=== PATIENT | female | born 1940 | race Caucasian/White ===

== ENCOUNTER 2018-12-30 05:45 | Observation (INO) ==
[2018-12-30] MEDS ORDERED: ceFAZolin Inj 2gm (Premix) 2 GM/50 ML BAG IV ONE ×2 (06:00→06:02)
[2018-12-30] MEDS ORDERED: Vancomycin-PHA to Dose IV PRN (06:00)
[2018-12-30] MEDS ORDERED: LIDOCAINE W/ SODIUM BICARB 0.5 ML SYR SUBD ONE (06:00)
[2018-12-30] MEDS ORDERED: Nasal Sanitizer POPSWAB ampule 3 AMP (Nozin) PREOP DOSE ENOS SCH (06:00)
[2018-12-30] MEDS ORDERED: Lactated Ringers 1,000 ML PRIMARY IV ONE ×2 (06:00→06:02)
[2018-12-30] MEDS ORDERED: LIDOCAINE W/ SODIUM BICARB 0.5 ML SYR ONE (06:03)
[2018-12-30] MEDS ORDERED: VANCOMYCIN HCL 1.25 GM VIAL IV ONE (06:05)
[2018-12-30] MEDS ORDERED: Sodium Chloride 0.9% 250 ML ONE (06:05)
[2018-12-30] MEDS ORDERED: MIDAZOLAM HCL 2 MG/2 ML VIAL ONE (07:27)
[2018-12-30] MEDS ORDERED: fentaNYL Inj 250 MCG/5 ML VIAL ONE (07:27)
[2018-12-30] MEDS ORDERED: LIDOCAINE MPF 2% - 5 ML (20 MG/1 ML) ONE (07:28)
[2018-12-30] MEDS ORDERED: PROPOFOL 10 MG/1 ML (200 MG/20 ML) VIAL IV ONE (07:28)
[2018-12-30] MEDS ORDERED: ROCURONIUM 10 MG/1 ML - 5 ML VIAL IVP ONE (07:33)
[2018-12-30] MEDS ORDERED: BUPivacaine Inj 0.25% PF - 10ml vial ONE (07:34)
[2018-12-30] MEDS ORDERED: Sodium Chloride 0.9% vial 10 ML ONE (07:34)
[2018-12-30] MEDS ORDERED: BUPIVACAINE 0.25% W/ EPI - 10 ML VIAL ONE (07:35)
[2018-12-30] MEDS ORDERED: BACITRACIN 50,000 UNIT VIAL IRRIG ONE (07:35)
[2018-12-30] MEDS ORDERED: ePHEDrine Inj 50 MG/ML AMP ONE (07:59)
[2018-12-30] MEDS ORDERED: DEXAMETHASONE PF 10 MG/1 ML VIAL ONE (08:05)
[2018-12-30] MEDS ORDERED: KETAMINE 100 MG/1 ML - 5 ML ONE (09:01)
[2018-12-30] MEDS ORDERED: SUGAMMADEX SODIUM 200 MG/2 ML VIAL IV ONE (10:35)
[2018-12-30] MEDS ORDERED: HYDROmorphone 2 MG/1 ML ONE (10:50)
[2018-12-30] MEDS: HYDROmorphone 2 MG/1 ML IVP PRN ×3 (10:55→11:22)
[2018-12-30] MEDS ORDERED: LIDOCAINE W/ SODIUM BICARB 0.5 ML SYR SUBD PRN (10:57)
[2018-12-30] MEDS ORDERED: ONDANSETRON 4 MG/2 ML VIAL IVP PRN ×2 (10:57→11:39)
[2018-12-30] MEDS ORDERED: fentaNYL Inj 100 MCG/2 ML VIAL IVP PRN (10:57)
--- NOTE | 2018-12-30 10:57 | CRNA.PROGR ---
Anesthesia Recovery Phase I - Post Anesthesia Evaluation Patient's Condition on Arrival in Phase I: Stable Pain Level: 0
--- NOTE | 2018-12-30 10:57 | CRNA.PROGR ---
Anesthesia Time - Procedure/Recovery Time Start Date: 12/30/18 End Date: 12/30/18 Anesthesia : Time In: 07:47 Anesthesia : Time Out: 10:42 Anesthesia : Total Time: 175 - Total Anesthesia Time Total Anesthesia Time (minutes): 175 - Other Weight: 93.077 kg Height: 5 ft Body Mass Index (BMI): 40.1 Physical Status: P3 Anesthesia Type: General Anesthesia : ET (Prone)
[2018-12-30] MEDS ORDERED: Lactated Ringers 1,000 ML PRIMARY IV SCH (11:00)
--- NOTE | 2018-12-30 11:11 | GEN.OPNOTE ---
Operative Note Surgery Date: 12/30/18 Preoperative Diagnosis: 1. 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 2. Chronic low back pain. 3. Status post multiple thoracolumbar surgical procedures. 4. Status post multiple joint replacements. 5. Status post left femur fracture repair. Postoperative Diagnosis: 1. 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 2. Chronic low back pain. 3. Status post multiple thoracolumbar surgical procedures. 4. Status post multiple joint replacements. 5. Status post left femur fracture repair. Procedure: 1.) Arthrodesis, right sacroiliac joint, minimally invasively with image guidance with placement of three SI Bone triangular titanium transfixing devices across the right SI joint. (CPT code: 20818). 2.) Use of TMAT DBM Putty to fill the titanium triagular implants. (CPT code: 63900). 3.) Use of intra-operative fluoroscopy for planning trajectories of the tranfixing cages and for confirmation of the final position of the cages. 4.) Use of neuromonitoring including EMG's and SSEP's. Surgeon: Jose Engel MD Mail Handler Sorter: BRAN Cunningham Anesthesia Provider: Daniel Alvarado CRNA Anesthesia Type: General Estimated Blood Loss (mL): 10 Fluids: See anesthesia record Pathology: None Indications: Ms. Kelly is very pleasant 77 year old woman with chronic back and right hip pain. She is status post multiple lumbar surgeries including fusions, hardware removals, and most recently a L3-4 laminectomy done in 2011. She recently underwent a right sacroiliac joint injection on 10/16/18, she states she had multiple days of pain relief following this injection. She experianced the same with several previous right SI joint injections. Ms. Kelly recently had a consultation with Dr. Mosley for her right sided pain. Dr. Mosley believes her pain is related to her SI joint and not her hip. She continues to rate her pain at 4/10 when walking or standing, but has little pain when sitting. She states she is able to stand for more than 5 minutes before needing to sit down. She states her right leg continues to be weak and has been walking with a cane for support. She wished to proceed with a right SI joint fusion. She has been cleared by cardiology and her primary. She has been bridged on Lovenox, since stopping her Pradaxa. She presents today for her surgical procedure. Findings: Dysmorphic sacrum Complications: None Operative Summary: Ms. Kelly was met in the preoperative area. Her surgical history and physical in her surgical chart was reviewed. The planned procedure to be performed was confirmed with Ms. Klely and we were in agreement on the procedure to be performed and this matched what was written on her consent form. Any questions that Ms. Kelly or her son had were answered before she was taken back to the operating room suite. Ms. Kelly was brought back to the operating room suite and put under general anesthesia and intubated by the anesthesia staff. She had a Ackerman catheter placed in her bladder for the procedure. She had pneumatic compression hose placed on her lower legs bilaterally. Ms. Kelly was carefully rolled over onto the Wood surgical table with her arms gently positioned upwards with her shoulders abducted less than 90. Her arms were well-padded with foam padding on top of the padding of the surgical armboards. The region of her chest and axilla was checked bilaterally to make sure that there were no pressure points over the region of the brachial plexus bilaterally. Her breasts were checked be below the chest pad of the Wood table no pressure points over the nipples. All bony prominences were well padded. Her Ackerman catheter was checked be free from kinks. Her pneumatic compression hose was attached and pneumatic compression device. The C-arm fluoroscopy unit was used to help localize the sacral alar line over the skin over the lateral aspect of the buttocks as well as a mid sacral line over the same. Based on the intersection of these lines, an intended skin incision was marked along the mid sacral line starting 1 cm dorsal/caudal to the intersection of this line with the sacral alar line and extending 3 mm dorsally and caudally from that point with a skin marker. Several crosshatches were made along the intended skin incision with a skin marker as well. Ms. Kelly was prepped and draped in the usual and standard fashion. She was given 2 g of Ancef IV and vancomycin IV as dosed per pharmacy. She was prepped and draped in the usual and standard fashion. A standard surgical timeout was performed identifying the correct patient, the correct procedure, and the correct equipment being available for the procedure. The intended skin incision was injected subcutaneously with quarter percent Marcaine with 1 in 200,000 epinephrine. 10 mL of local anesthetic was used. The skin was incised with a 10 blade scalpel and all dermal and superficial bleeding points controlled bipolar cautery. The first sharp pin was then advanced to the lateral aspect of the ilium and adjusted under multiple spot fluoroscopy until the pin was on the ilium just caudal to the sacral alar line and just posterior to the anterior aspect of the sacrum. The pin was then carefully advanced into the ilium with a mallet. A pelvic inlet view was then obtained demonstrating the correct the correct trajectory of the pin in this plane. Imaging was then changed to a pelvic outlet view. The soft tissue dissector was placed over the first pin and the soft tissue was dissected around the pin using this dissector. The soft tissue protector with the insert was then placed over the pin down to the lateral aspect of the ilium. The extension of the pin beyond the center insert was measured to appropriately size the first SI Bone 3-D triangular titanium cage. The hand-held drill was then used to drill just across the sacroiliac joint over the pin which was performed under multiple spot fluoroscopy. The broach was then placed over the pin and the broach was advanced until the tines of the broach just passed through the SI joint. The first triangular titanium SI bone cage measuring 45 mm in length was filled with [place] DBM Putty and advanced across the sacroiliac joint over the pin with the guide and mallet. The cage obtained good purchase across the sacroiliac joint. Final pelvic outlet and pelvic inlet views were obtained of the final position of the first cage. The pin guide was then placed over the first pin and the second pin was advanced through the pin guide and also adjusted under multiple spot fluoroscopy until this pin was placed on the lateral aspect of the ilium caudal and posterior to the first cage. This pin was gently advanced into the lateral aspect of the ilium with a mallet. A pelvic inlet view was then obtained demonstrating the correct trajectories of the second pin in this plane. Imaging was then changed to a pelvic outlet view. The soft tissue dissector was placed over the second pin and the soft tissue was dissected around the pin using this dissector. The soft tissue protector with the insert was then placed over the pin down to the lateral aspect of the ilium. The extension of the pin beyond the center insert was measured to appropriately size the second SI Bone 3-D triangular titanium cage. The hand-held drill was then used to drill just across the sacroiliac joint over the pin which was performed under multiple spot fluoroscopy. The broach was then placed over the pin and the broach was advanced until the tines of the broach just passed through the SI joint. The second triangular titanium SI bone cage measuring 50 mm in length was filled with [place] DBM Putty and advanced across the sacroiliac joint over the pin with the guide and mallet. The cage obtained good purchase across the sacroiliac joint. Final pelvic outlet and pelvic inlet views were obtained of the final position of the second cage. The pin guide was then placed over the second pin and the third pin was advanced through the pin guide and also adjusted under multiple spot fluoroscopy until this pin was placed on the lateral aspect of the ilium caudal to the first two cages placed. This pin was gently advanced into the lateral aspect of the ilium with a mallet. A pelvic inlet view was then obtained demonstrating the correct trajectories of the third pin in this plane. Imaging was then changed to a pelvic outlet view. The soft tissue dissector was placed over the third pin and the soft tissue was dissected around the pin using this dissector. The soft tissue protector with the insert was then placed over the pin down to the lateral aspect of the ilium. The extension of the pin beyond the center insert was measured to appropriately size the third SI Bone 3-D triangular titanium cage. The hand-held drill was then used to drill just across the sacroiliac joint over the pin which was performed under multiple spot fluoroscopy. The broach was then placed over the pin and the broach was advanced until the tines of the broach just passed through the SI joint. The third triangular titanium SI bone cage measuring 40 mm in length was filled with [place] DBM Putty and advanced across the sacroiliac joint over the pin with the guide and mallet. The cage obtained good purchase across the sacroiliac joint. Final pelvic outlet and pelvic inlet views, as well as final AP and lateral images were obtained of the final position of all three cages placed. The surgical site was copiously irrigated with bacitracin irrigation. The closure portion of the procedure was begun. The deep subcutaneous tissue was re-approximated with 2-0 Vicryl suture in an interrupted fashion. The dermis and superficial subcutaneous tissue was re-approximated with 3-0 Vicryl suture in an inverted interrupted fashion. The [place] drape was pulled back from the skin edges and the final layer of skin closure was performed with 4-0 Monocryl suture in a running subcuticular fashion. All surgical drapes removed from Ms. Robin Urias was then carefully rolled over onto the PACU stretcher. She was awoken and extubated by the anesthesia staff. She was taken to the recovery room in stable condition. All surgical counts were reported as correct by the scrub and circulating personnel. A physician's produce assistant, Mrs. Susanne Sen PA-C, assisted with the procedure including the exposure and closure portions of the procedure. She also assisted guiding the instruments over the pins for their appropriate placement.
[2018-12-30] MEDS ORDERED: HYDROcodone-APAP 7.5 MG-325 MG TABLET PO PRN (11:39)
[2018-12-30] MEDS ORDERED: DIAZEPAM 10 MG/2 ML (5 MG/1 ML) CARPUJECT IVP PRN (11:39)
[2018-12-30] MEDS ORDERED: oxyCODONE-ACETAMINOPHEN 5-325 TAB PO PRN (11:39)
[2018-12-30] MEDS ORDERED: BISACODYL 5 MG TABLET PO PRN (11:39)
[2018-12-30] MEDS ORDERED: MAGNESIUM CITRATE 296 ML SOLUTION PO PRN (11:39)
[2018-12-30] MEDS ORDERED: ISOSORBIDE MONONITRATE 60 MG PO SCH (11:39)
[2018-12-30] MEDS ORDERED: MAGNESIUM 400 MG/5 ML - 30 ML (MILK OF MAGNESIA) PO PRN (11:39)
[2018-12-30] MEDS ORDERED: LOTEPREDNOL ETABONATE OP PRN (11:39)
[2018-12-30] MEDS ORDERED: HYDROcodone-APAP 10 MG-325 MG TABLET PO PRN (11:39)
[2018-12-30] MEDS ORDERED: Ondansetron ODT Tab 4 MG TAB PO PRN (11:39)
[2018-12-30] MEDS ORDERED: Fleet Enema 133ml RECTAL PRN (11:39)
[2018-12-30] MEDS ORDERED: Vancomycin-PHA to Dose IV SCH (11:39)
[2018-12-30] MEDS ORDERED: MORPHINE SULFATE 2 MG/1 ML IVP PRN (11:39)
[2018-12-30] MEDS ORDERED: DOCUSATE 100 MG CAPSULE PO PRN (11:39)
[2018-12-30] MEDS ORDERED: DIAZEPAM 5 MG TABLET PO PRN (11:39)
[2018-12-30] MEDS ORDERED: METOPROLOL SUCCINATE 50 MG SR 24H TABLET PO SCH ×2 (12:30→21:00)
--- NOTE | 2018-12-30 12:57 | CONSULT ---
Consult Note - Consult Consult Date: 12/30/18 Reason for Consult: PostOp Consulation : Neuro Requesting Physician: Dr. Engel Primary Care Provider: Sammi Funez - History of Present Illness History of Present Illness: This is a 78 years old female with medical history significant for history of hypertension, atrial fibrillation with previous ablation, history of GERD, history of previous ischemic stroke who came into the hospital to have right SI joint fusion and was done today. The hospitalist service were consulted for management of medical issues. Patient was seen postoperatively she had some nausea but she denied other complaints. She did say that the pradaxa was stopped a few days ago and she was on the Lovenox as a bridge and the last time she took it was last night. Past Medical History Medical History: 1. History of hypertension. 2. History of atrial fibrillation with previous ablation. 3. History of previous ischemic stroke. 4. History of GERD. 5. History of hypercholesterolemia Surgical History: 1. History of cholecystectomy. 2. History of previous back surgery. 3. History of right knee replacement. 4. Cataract surgery. 5. History of previous ablation for A. fib Family History: Reviewed an Not Pertinent Past Social History: Does not smoke, does not drink nor drugs. Tobacco Use: Never Smoker In the Past 12 Months, Have Used or Abuse Any of the Following Substance: None Review of Systems - Review of Systems All Systems: Reviewed & No Additional Complaints Except as Stated Medication / Allergies Home Medications: Home Medications Medication Instructions Recorded Confirmed amlodipine 10 mg tablet 10 mg PO QDAY 03/16/18 12/29/18 biotin 5 mg capsule 5 mg PO QDAY 03/16/18 12/29/18 calcium carbonate 500 mg calcium 500 mg PO BID tab 03/16/18 12/29/18 (1,250 mg) tablet cholecalciferol (vitamin D3) 1,000 1,000 unit PO QDAY 03/16/18 12/29/18 unit capsule dabigatran etexilate 150 mg capsule 150 mg PO BID 03/16/18 12/29/18 docusate sodium 100 mg capsule 100 mg PO BID 03/16/18 12/29/18 evening primrose oil 500 mg capsule 1,000 mg PO QDAY cap 03/16/18 12/29/18 glucosamine-chondroitin 250 mg-200 2 tab PO QPC 11/12/18 08/27/19 mg tablet hydrochlorothiazide 25 mg tablet 25 mg PO QAM 03/16/18 12/29/18 isosorbide mononitrate ER 60 mg 60 mg PO QDAY 03/16/18 12/29/18 tablet,extended release 24 hr losartan 100 mg tablet 100 mg PO QAM 03/16/18 12/29/18 loteprednol etabonate 0.5 % eye 1 drp OP QID PRN 03/16/18 12/29/18 gel drops metoprolol succinate ER 50 mg 50 mg PO QDAY 03/16/18 12/29/18 tablet,extended release 24 hr omega-3 fatty acids 1,000 mg 1,000 mg PO QDAY 03/16/18 12/29/18 capsule potassium chloride ER 10 mEq 10 meq PO QDAY 03/16/18 12/29/18 capsule,extended release pravastatin 20 mg tablet 20 mg PO QDAY 03/16/18 12/29/18 rabeprazole 20 mg tablet,delayed 20 mg PO QDAY 03/16/18 12/29/18 release vitamin B12 500 mcg-folic acid 400 1 tab PO QDAY 03/16/18 12/29/18 mcg tablet vitamins A,C,[id number]-[id number] 14,320 1 cap PO QAM AND QPM 03/16/18 12/29/18 unit-226 mg-200 unit capsule Losartan [Cozaar] 1 tab PO QPM 12/29/18 12/29/18 Allergies/Adverse Reactions: Allergies Allergy/AdvReac Type Severity Reaction Status Date / Time dexlansoprazole Allergy Unknown Other : Verified 12/29/18 09:16 [From Dexilant] See Comment metaxalone [From Skelaxin] Allergy Unknown Other : Verified 12/29/18 09:16 See Comment rofecoxib [From Vioxx] Allergy Unknown Other : Verified 12/29/18 09:16 See Comment meperidine [From Demerol] Allergy hives Verified 12/29/18 09:16 phenytoin [From Dilantin] Allergy hives Verified 12/29/18 09:16 tramadol [From Ultram] Allergy hives Verified 12/29/18 09:16 teriparatide [From Forteo] AdvReac Other : Verified 12/30/18 10:10 See Comment Exam - Vitals Vital Signs: Vital Signs Temperature 96.3 F Temperature Source Temporal Artery Scan Pulse Rate [Pulse Oximeter] 63 Pulse Rate [Pulse Oximeter] 66 Pulse Rate [Left Radial] 64 Pulse Rate 65 Respiratory Rate 16 Blood Pressure [Right Arm] 125/64 Blood Pressure [Right Arm] 124/67 Blood Pressure 123/68 Pulse Ox 94 Oxygen Flow Rate 3 Oxygen Delivery Method Nasal Cannula Height 5 ft Weight 200 lb - General General Appearance: No Acute Distress, Cooperative - Head Head Exam: Normal Inspection - Eye Eye Exam: POSITIVE: Normal Appearance - ENT ENT Exam: POSITIVE: Normal Exam - Neck Neck Exam: Normal Inspection - Respiratory Respiratory Exam: POSITIVE: Clear to Auscultation - Bilaterally - Cardiovascular Cardiovascular Exam: POSITIVE: RRR - GI/Abdominal GI/Abdominal Exam: POSITIVE: Normal Bowel Sounds, Non Tender, Non Distended, Soft, No Organomegaly - Rectal Rectal Exam: POSITIVE: Deferred - External Exam: POSITIVE: Deferred - Extremities Extremities Exam: POSITIVE: Normal Inspection - Back Back Exam: POSITIVE: Normal Inspection Additional Back Exam Details: Scar of previous operations noted - Neurological Neurological Exam: POSITIVE: Alert, Oriented x 3, CN II-XII Intact, No Facial Droop, Speech Intact / Clear - Psychiatric Psychiatric Exam: POSITIVE: Normal Affect - Integumentary Integumentary Exam: POSITIVE: Normal Color Assessment and Plan - Patient Problems (1) A-fib Current Visit: No Status: Chronic Comment: Continue metoprolol, since we don't have the Pradxa will use the Lovenox tomorrow and then when she go home to resume her pradaxa Friday morning. She did say that she received Lovenox the last 2 days and last one was last night. Code(s): I48.91 - Unspecified atrial fibrillation (2) High blood pressure Current Visit: No Status: Chronic Comment: Continue previous medications. Code(s): I10 - Essential (primary) hypertension (3) High cholesterol Current Visit: No Status: Chronic Comment: Same med Code(s): E78.00 - Pure hypercholesterolemia, unspecified (4) Sleep apnea Current Visit: No Status: Chronic Comment: Continue with her CPAP. Code(s): G47.30 - Sleep apnea, unspecified
[2018-12-30] MEDS ORDERED: HYDROCHLOROTHIAZIDE 25 MG TABLET PO SCH (13:00)
--- NOTE | 2018-12-30 13:29 | NEURO.PROG ---
Subjective Post Op Day: 0 Pain Management: PO Ackerman Catheter: Yes Diet: Regular Ambulating: Yes Additional Details: Awake and alert in bed on med/surg floor. Nausea. Surgical pain as expected. Denies new leg symptoms. Moving all extremities well bilaterally. Antiemetics. Continue post-operative antibiotics. Continue post-op pain medications. Advance diet. Mobilize. Lovenox 90 mg from pharmacy tomorrow morning, patient has one more 90 mg dose she will inject tomorrow night, and she will resume Pradaxa the following morning. Objective : Data - Vital Signs Vital Signs and I&O: Vital Signs - Last Taken Temperature 96.3 F L 12/30/18 11:55 Pulse Rate 63 12/30/18 12:10 Respiratory Rate 16 12/30/18 12:10 Blood Pressure 125/64 12/30/18 12:10 Pulse Ox 94 12/30/18 12:10 Intake and Output (24hr x 4 totals) 12/28/18 12/29/18 12/30/18 12/31/18 05:59 05:59 05:59 05:59 Intake Total 1000 / 1000 Output Total 50 / 50 Balance 950 / 950
[2018-12-30] MEDS ORDERED: PANTOPRAZOLE 40 MG TABLET PO SCH ×2 (16:30→21:00)
[2018-12-30] MEDS: ceFAZolin Inj 2gm (Premix) 2 GM/50 ML BAG IV SCH (16:33)
[2018-12-30] MEDS: DOCUSATE 100 MG CAPSULE PO SCH (20:12)
[2018-12-30] MEDS ORDERED: Pravastatin Tab 20 MG TAB PO SCH (21:00)
[2018-12-30] MEDS ORDERED: LOSARTAN 50 MG TABLET PO SCH (21:00)
[2018-12-30] MEDS ORDERED: ISOSORBIDE MONONITRATE 30 MG SR 24H TABLET PO SCH (21:00)
[2018-12-31] MEDS: ceFAZolin Inj 2gm (Premix) 2 GM/50 ML BAG IV SCH
[2018-12-31] MEDS: HYDROcodone-APAP 5 MG -325 MG TABLET PO PRN ×3 (02:12→10:32)
[2018-12-31 05:11] LABS: BASOPHILS # (AUTO) 0 10*3/UL; BASOPHILS % (AUTO) 0 % (0-1); EOSINOPHILS # (AUTO) 0 10*3/UL; EOSINOPHILS % (AUTO) 0 % (0-8); Hemoglobin [HGB] 12.8 g/dL (12.0-16.0); LYMPHOCYTES # (AUTO) 1.17 10*3/uL; MEAN CORPUSCULAR HGB CONC 31.2 g/dL (33-37); MEAN CORPUSCULAR VOLUME 85.8 FL (81-99); MEAN PLATELET VOLUME 10.7 FL (7.4-12.2); MONOCYTES # (AUTO) 0.79 10*3/UL (0.3-0.8); MONOCYTES % (AUTO) 7.7 % (5-15); NEUTROPHILS # (AUTO) 8.34 10*3/UL; NEUTROPHILS % (AUTO) 80.8 % (50-80); RED BLOOD COUNT 4.78 10^6/uL (4.20-5.40)
[2018-12-31 05:16] LABS: PLATELET MORPHOLOGY COMMENT NORMAL MORPHOLOGY (NORM); RBC MORPHOLOGY COMMENT NORMAL MORPHOLOGY (NORM); WBC MORPHOLOGY COMMENT NORMAL MORPHOLOGY (NORM)
[2018-12-31 05:20] LABS: BUN/CREATININE RATIO 26.66 (6-20)
--- NOTE | 2018-12-31 06:41 | NEURO.PROG ---
Subjective Post Op Day: 1 Pain Management: PO Ackerman Catheter: No Diet: Regular Additional Details: Ms Kelly is awake and alert and ready to go home today. She has been up to the bathroom and in her room without difficulty. She has good bilateral leg strength, with expected post operative pain. She has no other complaints. Her dressing is dry and intact. A plan is in place regarding her anticoagulation for afib, with 1 more dose of L ovenox then restarting her Predaxa tomorrow morning. She was given post op instructions regarding activity and incision care. She also was reminded not to drive while she is on pain medication. She will be seen in Dr Engel's [facility] in approximately 2 weeks. Objective : Data - Labs CBC and BMP: 12/31/18 04:05 12/31/18 04:05 - Vital Signs Vital Signs and I&O: Vital Signs - Last Taken Temperature 97.0 F 12/31/18 04:05 Pulse Rate 72 12/31/18 04:05 Respiratory Rate 18 12/31/18 04:05 Blood Pressure 115/55 12/31/18 04:05 Pulse Ox 94 12/31/18 04:25 Intake and Output (24hr x 4 totals) 12/29/18 12/30/18 12/31/18 01/01/19 05:59 05:59 05:59 05:59 Intake Total 2288 / 2288 Output Total 425 / 425 Balance 1863 / 1863
[2018-12-31 07:25] VITALS: BP 114/52; RESP 14; TEMP 98.4; O2SAT 95
[2018-12-31] MEDS: DOCUSATE 100 MG CAPSULE PO SCH (08:05)
[2018-12-31] MEDS ORDERED: LOSARTAN 50 MG TABLET PO SCH (09:00)
[2018-12-31] MEDS ORDERED: DABIGATRAN ETEXILATE MESYLATE 150 MG PO SCH (09:00)
[2018-12-31] MEDS ORDERED: HYDROCHLOROTHIAZIDE 25 MG TABLET PO SCH (09:00)
[2018-12-31] MEDS ORDERED: Potassium Chloride Tab 10 MEQ TAB PO SCH (09:00)
[2018-12-31] MEDS ORDERED: ENOXAPARIN SODIUM 100 MG/1 ML SYRINGE SUBCUT SCH (09:00)
--- NOTE | 2018-12-31 11:11 | PT.PROG ---
Progress Note Progress Note: S. pt was just getting back with nursing from getting a shower. O. pt ambulated 200 feet with FWW. She performed 3 stairs both up and down with emphasis on little as possible weight bearing on affected leg. She was instructed on how to unload by pushing through her hands. She was taken back to her room and helped with ADL's, put in bed. A. she was able to do all and is cleared from therapy for discharge when her physician deems appropriate. P. Cont POC until discharge. [employer]
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
--- NOTE | 2019-01-05 10:14 | OTI REPORT ---
Thank you for the referral of Rafaela Kelly. She was seen on 12/31/18 for an occupational therapy inpatient evaluation status post right SI fusion. SUBJECTIVE: The patient is a 78-year-old female who underwent an SI joint fusion. The patient lives in [place]. Prior to admission she was independent with her ADLs. The patient reports that overall she feels like she is doing pretty well. PAST MEDICAL HISTORY: Past medical history can be found in the patient's medical record. OBJECTIVE FINDINGS: Bed mobility: The patient was able to come from supine to sit with a log roll independently. Activities of daily living: While sitting edge of bed we worked on use of adaptive devices. The patient does have a dross skimmer at home which she uses to dress self. The patient was issued a sock aide, a shoe horn, and a bath sponge to improve her overall abilities. She also has an adaptive bathroom that she just had re-built with a walk-in shower with a seat that you sit on as well as a higher toilet. The patient was able to use adaptive devices with verbal cues and did very well with this. ASSESSMENT: The patient did well with ADLs and being able to use assistive devices. She is more than likely going to be discharged this afternoon. Occupational Therapy Goals: To be met following discharge from inpatient: Patient will be discharged to home, demonstrating independence and safety with all ADLs and functional transfers. TREATMENT PLAN: Patient will be seen for OT evaluation only. INITIAL TREATMENT: Treatment today consisted of the initial evaluation only. ALEK
== END 2018-12-31 12:50 | disposition home or self-care (01) ==
LOC: OR 05:45 → MED/SURG 05:45
PROVIDERS: ADMIT Neurological Surgery; ATTEND Neurological Surgery